=== PATIENT | female | born 1955 | race Caucasian/White ===

== ENCOUNTER 2016-07-15 06:20 | Day surgery (SDC) | payer BC, OTHER ==
[2016-07-10 08:44] LABS: BASOPHILS 0.2 %; BASOPHILS ABSOLUTE 0.01 10/3/uL (0.0-0.16); EOSINOPHILS 2.1 %; HEMOGLOBIN 14.1 g/dL (12.0-16.0); LYMPHOCYTES ABSOLUTE 1.32 10/3/uL (0.67-4.30); MEAN CORPUS HGB CONC 35.3 g/dL (32.0-36.0); MEAN CORPUSCULAR HEMOGLOB 30.2 pg (26.0-34.0); MEAN CORPUSCULAR VOLUME 85.7 fL (80-100); MEAN PLATELET VOLUME 11.2 fL (9.2-13.0); MONOCYTES 9.1 %; MONOCYTES ABSOLUTE 0.43 10/3/uL (0.21-1.20); NEUTROPHILS 60.6 %; NEUTROPHILS ABSOLUTE 2.85 10/3/uL (2.02-8.40); PLATELET COUNT 219 10/3/uL (150-400); RED CELL COUNT 4.67 10/6/uL (4.0-5.6); WHITE BLOOD CELLS 4.7 10/3/uL (4.5-10.5)
[2016-07-10 08:46] LABS: MANUAL DIFF NO %
[2016-07-10 09:01] LABS: BUN (BLOOD UREA NITROGEN) 20 MG/DL (6-23); CALCIUM, SERUM 9.2 MG/DL (8.5-10.4); CHLORIDE, SERUM 108 MMOL/L (96-112); CO2 (CARBON DIOXIDE) 33 MMOL/L (24-34); CREATININE 0.95 MG/DL (0.55-1.02); GFR AFRICAN AMERICAN 77 ML/MIN (>=60); GFR NON AFRICAN AMERICAN 66 ML/MIN (>=60); GLUCOSE, SERUM 91 MG/DL (60-99); POTASSIUM, SERUM 4.3 MMOL/L (3.5-5.3); SODIUM, SERUM 143 MMOL/L (135-148)
--- NOTE | ~2016-07-15 | OP ---
Record Of Operation [facility] [address] [place]. [address] NAME: FELICITAS PHIPPS : 59 STATUS : REG [facility] PAT#: [id number] AGE: 60 ADM/REG DATE : 07/15/16 MR#: [id number] REPORT SERV DATE: 07/15/16 DICTATED BY: CHRIS VIDAL DATE: 07/15/16 REPORT STATUS : Draft TRANSCRIBED BY: MANDI DATE: 07/15/16 DATE OF PROCEDURE: 07/15/2016 SERVICE: Otolaryngology. PREOPERATIVE DIAGNOSES: 1. Acquired nasal deformity. 2. Deviated nasal septum. 3. Bilateral inferior turbinate hypertrophy. POSTOPERATIVE DIAGNOSES: 1. Acquired nasal deformity. 2. Deviated nasal septum. 3. Bilateral inferior turbinate hypertrophy. PROCEDURE: 1. Repair of nasal vestibular stenosis. 2. Septoplasty. 3. Bilateral inferior turbinate reduction and outfracture. 4. Fernley of septal cartilage for use as a graft in the nose. CONCIERGE RECEPTIONIST: None. ANESTHESIA: General endotracheal anesthesia. SPECIMENS: Nasal bone and cartilage. ESTIMATED BLOOD LOSS: 5 mL. COMPLICATIONS: None. FINDINGS: The patient had an enlarged and medialized inferior turbinates and had narrow internal nasal valve and a deviated nasal septum to the left. STATEMENT OF MEDICAL NECESSITY: A 60-year-old female, referred for chronic nasal airway obstruction. In the office, she demonstrated great improvement with modified Bartow maneuver. She also had a significantly deviated septum that was abutting the inferior turbinate on the left. Given the above findings, I recommended surgery for repair. The patient had no evidence of allergic disease. STATEMENT OF OPERATION: The patient was brought to the operating room in supine position, transferred to the operating room table. All pressure points were padded. General endotracheal anesthesia was established, the nose was repaired first by trimming the nasal vibrissae with straight iris scissors. The nose was packed bilaterally with 4% cocaine- soaked pledgets. The skin and soft tissue envelope and the septum were injected with 1% lidocaine with epinephrine totaling 5.5 mL. The patient was then prepped and draped for Record Of Operation [facility] [address] [place]. [address] NAME: FELICITAS PHIPPS : 59 STATUS : REG [facility] PAT#: [id number] AGE: 60 ADM/REG DATE : 07/15/16 MR#: [id number] REPORT SERV DATE: 07/15/16 DICTATED BY: CHRIS VIDAL DATE: 07/15/16 REPORT STATUS : Draft TRANSCRIBED BY: MANDI DATE: 07/15/16 surgery. The pledgets were removed and a transcolumellar incision was marked out with a surgical marking pen in the inverted V fashion. Bilateral marginal incisions were then made with a #15 blade followed by a transcolumellar incision with a #11 blade. This columellar skin was elevated in the submuscular plane and connected with the marginal incisions. The skin and soft tissue envelope was completely elevated in the submuscular plane exposing the upper lateral and lower lateral cartilages. The anterior septal angle was then developed with a #15 blade. Bilateral septal flaps were created in the subperichondrial and subperiosteal plane. The upper lateral cartilages were then divided with a #15 blade from the dorsal septal cartilage. The bony cartilaginous junction was then with a Bartow elevator. The deviated bony septal spur on the left was isolated first by making a superior cut and then an inferior cut with double-action scissors. A Xavier forceps was then used to remove the deviated portion. A D knife was then used to carve out some quadrangular cartilage leaving 1.5 cm dorsal and caudal strut. This was taken to the back table. Two envelope machine operator grafts and one columellar strut grafts were carved with a #15 blade. The envelope machine operator grafts were placed between the upper lateral cartilages and dorsal septal cartilage and secured with 5-0 PDS sutures. A soft tissue pocket was then created between the medial crura of the lower lateral cartilage. A cartilaginous strut graft was placed in the pocket and a transcolumellar suture was performed while the medical support assistant held the tips in appropriate projection and rotation. The suture was a 5-0 PDS. Next, both inferior turbinates were injected with 1% lidocaine with epinephrine. They were reduced submucosally with a microdebrider and outfractured with a Boies elevator. The transcolumellar incision was then closed with interrupted 6-0 fast absorbing gut sutures followed by the internal nasal incision, which was closed with 4-0 chromic gut sutures. Trevizo splints coated in bacitracin were inserted in both sides of the nose and secured to the anterior septum with a 3-0 nylon stitch. The skin and face were then cleansed with warm saline and dried. Mastisol solution was applied to the dorsal skin of the nose followed by modified Steri- Strips and an Aquaplast splint. This completed the case. The patient was turned back over to Anesthesia where she awoke, was extubated, and transferred to the PACU in stable condition. PS/MODL Chris Vidal MD / [id number] CC: Chris Vidal MD UNKNOWN
[~2016-07-15 06:20] MED LIST: *DENIES
== END 2016-07-15 13:50 | disposition home or self-care (01) ==
LOC: SDC 06:20
PROVIDERS: Otolaryngology
PROC: 09BM0ZZ Excision of Nasal Septum, Open Approach (ICD-10-PCS; 2016-07-15)
PROC: 0W3 Anatomical Regions, General, Control (ICD-10-PCS; principal; 2016-07-15 08:00)
DX: J34.2 Deviated nasal septum (principal); J34.3 Hypertrophy of nasal turbinates; M95.0 Acquired deformity of nose
CPT/HCPCS: 80048; 85025; 88300; 93005; A9270-GY; J0690; J2250; J2370; J2405; J2710; J3010